=== PATIENT | female | born 1970 | race Hispanic/Latino ===

== ENCOUNTER 2022-03-03 17:53 | Observation (INO) | payer OTHER ==
[~2022-03-03 17:53] MED LIST: Iopamidol 300 61% 100 ML VIAL FS ONE
[2022-03-03 18:28] LABS: #Basophils 0.1 10x3/uL (0.0-0.2); #Eosinphils 0.2 10x3/uL (0.0-0.5); #Monocytes 0.7 10x3/uL (0.0-1.1); #Neutrophils 9.4 10x3/uL (1.5-8.4); %Basophils 0.5 % (0.0-2.0); %Eosinophils 1.2 % (0.0-6.0); %Lymphocytes 18.4 % (18.0-47.0); %Monocytes 5.6 % (0.0-10.0); %Neutrophils 74.1 % (40.0-75.0); Hemoglobin 13.5 g/dL (12.0-15.5); Mean Corpuscular HGB CONC 33.8 g/dL (32.0-36.0); Mean Corpuscular Hemoglobin 32.7 pg (27.0-33.0); Mean Corpuscular Volume 96.6 fl (81.6-98.3); Mean Platelet Volume 9.7 fl (7.4-10.4); Platelet Count 278 10x3/uL (150-450); RBC Distribution Width 12.7 % (11.5-14.5); Red Blood Cell (RBC) Count 4.13 10x6/uL (3.90-5.03); White Blood Cell (WBC) Count 12.7 10x3/uL (3.5-10.5)
[2022-03-03 18:36] LABS: ALT (SGPT) 15 U/L (8-55); AST (SGOT) 14 U/L (5-34); Albumin 4.1 g/dL (3.5-5.0); Alkaline Phosphatase 73 U/L (40-110); Anion Gap 12 mmol/L (10-20); BUN (Urea Nitrogen) 10 mg/dL (7.0-18.7); Bilirubin, Total 0.3 mg/dL (0.2-1.2); Calc. Creatinine Clearance 0 mL/min (70-130); Carbon Dioxide 23 mmol/L (22-29); Chloride 106 mmol/L (98-107); Estimated GFR 98; Glucose 87 mg/dL (70-105); Lipase 26 U/L (8-78); Potassium 4.3 mmol/L (3.5-5.1); Protein, Total 7.1 g/dL (6.0-8.3); Sodium 137 mmol/L (136-145)
[2022-03-03] MEDS ORDERED: Meropenem 500 MG VIAL ONE (19:35)
[2022-03-03 19:40] LABS: Bilirubin Neg (Negative); Blood, Urine Negative (Negative); Clarity Clear (Clear); Glucose, Urine (Dipstick) Normal (Negative); Ketone, Urine Negative (Negative); Leukocyte Negative (Negative); Nitrite Negative (Negative); Protein, Urine (Dipstick) Negative (Neg-Trace); Urobilinogen Normal mg/dL (Less than 2)
[2022-03-03] MEDS ORDERED: Morphine 4 MG/ML VIAL ONE (19:43)
[2022-03-03] MEDS ORDERED: Ondansetron PF 4 MG/2 ML Vial ONE (19:43)
[2022-03-03 22:01] LABS: SARS-CoV-2 NAA Rapid Test Not Detected (NotDetected)
[2022-03-03 23:34] VITALS: BMI 32.8
[2022-03-04] MEDS ORDERED: Morphine 4 MG/ML VIAL SLOW IVP PRN (00:28)
[2022-03-04] MEDS ORDERED: Sodium Chloride 0.9% 1,000 ML IV SCH (00:30)
[2022-03-04] MEDS ORDERED: Acetaminophen 325 MG TAB PO PRN (00:33)
[2022-03-04] MEDS ORDERED: Ondansetron PF 4 MG/2 ML Vial IVP PRN ×2 (00:33→06:56)
[2022-03-04] MEDS ORDERED: Meropenem 1 GM in Sodium Chloride 0.9% 100 ML IVPB SCH ×2 (04:00→12:45)
[2022-03-04] MEDS ORDERED: Dextrose 5% in Water 1,000 ML IV PRN (06:56)
[2022-03-04] MEDS ORDERED: Promethazine HCl 25 MG/ML VIAL IM PRN (06:56)
[2022-03-04] MEDS ORDERED: hydrALAZINE 20 MG/ML VIAL SLOW IVP PRN (06:56)
[2022-03-04] MEDS ORDERED: Dextrose 50% Abboject 50 ML SYRINGE SLOW IVP PRN (06:56)
[2022-03-04] MEDS ORDERED: Morphine 2 MG/ML VIAL SLOW IVP PRN (06:56)
[2022-03-04] MEDS ORDERED: Gabapentin 300 MG CAP PO PRN (07:05)
[2022-03-04] MEDS: HYDROcodone/Acetaminophen 10/325 mg Tablet PO PRN ×2 (08:49→15:22)
[2022-03-04] MEDS: D5 1/2 NS w/20 mEq KCL 1,000 ML IV SCH ×2 (08:51→14:51)
[2022-03-04] MEDS ORDERED: Escitalopram Oxalate 10 mg Tablet PO SCH (09:00)
[2022-03-04] MEDS ORDERED: EPINEPHrine 1 MG/ML AMP ONE (10:08)
[2022-03-04] MEDS ORDERED: Bupivacaine PF 0.5% 30 ML VIAL ONE (10:09)
[2022-03-04] MEDS ORDERED: Ketorolac Tromethamine 30 MG/ML VIAL IVP SCH (12:00)
[2022-03-04] MEDS ORDERED: Fentanyl 100 MCG/2 ML VIAL ONE (12:20)
[2022-03-04] MEDS ORDERED: PROPOFOL 20 ML ONE (12:20)
[2022-03-04] MEDS ORDERED: Rocuronium Bromide 10 MG/ML (10ML VIAL) ONE (12:20)
[2022-03-04] MEDS ORDERED: Dexamethasone 4 mg/ml Vial ONE (12:20)
[2022-03-04] MEDS ORDERED: Ondansetron PF 4 MG/2 ML Vial ONE (12:20)
[2022-03-04] MEDS ORDERED: Lidocaine 1% PF 5 ML VIAL ONE (12:20)
[2022-03-04] MEDS ORDERED: Glycopyrrolate 0.2 MG/ML 5 ML SYRINGE ONE (13:04)
[2022-03-04] MEDS ORDERED: Ketorolac Tromethamine 30 MG/ML VIAL ONE (13:04)
[2022-03-04 16:19] VITALS: BP 127/89; TEMP 98.5
== END 2022-03-04 18:00 | disposition home or self-care (01) ==
LOC: CSHERS 17:53 → CSHTELE 23:12
PROVIDERS: ADMIT Surgery; ATTEND Surgery
PROC: 0DTJ4ZZ Resection of Appendix, Percutaneous Endoscopic Approach (ICD-10-PCS; principal; 2022-03-04)
DX: K35.80 Unspecified acute appendicitis (principal); I10 Essential (primary) hypertension; F17.210 Nicotine dependence, cigarettes, uncomplicated; E78.5 Hyperlipidemia, unspecified; G89.29 Other chronic pain; M54.9 Dorsalgia, unspecified; Z79.899 Other long term (current) drug therapy; Z88.0 Allergy status to penicillin; Z20.822 Contact with and (suspected) exposure to COVID-19
CPT/HCPCS: 36416; 74177; 80053; 81003; 83605; 83690; 85025; 88304; 96374; 96375; 96376; A4649; G0378; J0171; J1100; J1885; J2185; J2270; J2405; J2704; J3010; J3480; J3490; J7050; Q9967; S0020; U0002

== ENCOUNTER 2024-03-07 10:04 | Emergency (ER) | payer OTHER | END 2024-03-07 12:27 | disposition home or self-care (01) | LOC: CSHERS 10:04 | DX: J18.9 Pneumonia, unspecified organism (principal); I10 Essential (primary) hypertension; F17.210 Nicotine dependence, cigarettes, uncomplicated | CPT/HCPCS: 71045 ==